=== PATIENT | female | born 1965 | race Caucasian/White ===

== ENCOUNTER 2016-12-08 12:46 | Emergency (ER) | payer OTHER ==
[2016-12-08] MEDS ORDERED: Sodium Chloride 0.9% 10 ML Syringe FLUSH PRN (12:59)
--- NOTE | 2016-12-08 13:04 | EDM.PDOC ---
ED HPI NEURO - General Chief Complaint: Neurological Problem Stated Complaint: NUMB ON HER RIGHT SIDE Time Seen by Provider: 12/08/16 13:02 Source: Reports: Patient, Family History Limitations: Reports: No limitations - History of Present Illness INITIAL COMMENTS - FREE TEXT/NARRATIVE: pt developed numbness in the rt side of her mouth and rt facial area. She also has numbness on the rt arm and rt leg. She feels like her rt leg is heavy. Timing/Duration: Reports: Other ( started at 12:04) Location (Neuro Complaint): Reports: face, upper extremity, right, lower extremity, right Associated symptoms: Reports: headaches - Related Data Allergies/ADRs: Allergies Allergy/AdvReac Type Severity Reaction Status Date / Time codeine Allergy Diarrhea Verified 12/08/16 12:49 Home Meds: Home Meds NK [No Known Home Meds] 12/08/16 [History] Past Medical History Cardiovascular History: Reports: High cholesterol Endocrine/Metabolic History: Reports: Diabetes, type II - Past Surgical History GI Surgical History: Reports: Cholecystectomy Social & Family History - Tobacco Use Smoking Status *Q: Heavy Tobacco Smoker Years of Tobacco use: 36 Packs/Tins Daily: 1 - Alcohol Use Days Per Week of Alcohol Use: 2 Number of Drinks Per Day: 4 Total Drinks Per Week: 8 - Recreational Drug Use Recreational Drug Use: No ED ROS GENERAL - Review of Systems Review Of Systems: See Below Constitutional: Reports: no symptoms HEENT: Reports: No symptoms Respiratory: Reports: no symptoms Cardiovascular: Reports: No symptoms Endocrine: Reports: no symptoms, high glucose GI/Abdominal: Reports: No symptoms : Reports: no symptoms Musculoskeletal: Reports: no symptoms Skin: Reports: no symptoms Neurological: Reports: headache, other (numness on rt facial and rt arm and rt leg. ) Psychiatric: Reports: Anxiety ED EXAM, NEURO - Physical Exam Exam: See Below Text/Narrative:: pt arrived with numbness in the rt facial area and rt arm and rt leg. She has a left sided headache. She had a similar episode on Nov 22 that only lasted briefly. She did have a high sugar in the past but she stopped her meds. Her bs is greater than 400. Exam Limited By: No limitations General Appearance: alert, mild distress, other (pt is having the numbness in the rt facial and rt arm and rt leg. She has a left sided headache. Pupils are equal and reactive. ) Ears: normal TMs Nose: normal inspection Throat/Mouth: Normal inspection Head Exam: atraumatic Neck: normal inspection Respiratory/Chest: no respiratory distress GI/Abdominal: soft, non tender Rectal (Female) Exam: Deferred Neurological: alert, oriented x 3, other (pt has facial numbness on the rt and numbness in the rt arm and the rt leg. She does not have subjective findings. ) Back Exam: CVA tenderness (L) Extremities: normal inspection Psychiatric: normal affect, anxious Course - Vital Signs Last Recorded V/S: Last Vital Signs Temp 37.2 C 12/08/16 12:49 Pulse 75 12/08/16 14:34 Resp 18 12/08/16 14:34 BP 146/71 H 12/08/16 14:34 Pulse Ox 94 L 12/08/16 14:34 - Orders/Labs/Meds Orders: Active Orders 24 hr Category Date Time Status EKG Documentation Completion [RC] ASDIRECTED Care 12/08/16 13:02 Active UA W/MICROSCOPIC [URIN] Urgent Lab 12/08/16 13:02 Uncollected Sodium Chloride 0.9% [Saline Flush] Med 12/08/16 12:59 Active 10 ml FLUSH ASDIRECTED PRN Saline Lock Insert [OM.PC] Routine Oth 12/08/16 12:59 Ordered EKG 12 Lead [EK] Routine Ther 12/08/16 13:02 Ordered Medication Orders Sodium Chloride (Saline Flush) 10 ml FLUSH ASDIRECTED PRN PRN Reason: Keep Vein Open Last Admin: 12/08/16 13:35 Dose: 10 ml Labs: Laboratory Tests 12/08/16 12/08/16 Range/Units 13:22 13:22 WBC 11.7 H (4.5-11.0) K/uL RBC 5.09 (3.30-5.50) M/uL Hgb 15.5 H (12.0-15.0) g/dL Hct 43.9 (36.0-48.0) % MCV 86 (80-98) fL MCH 31 (27-31) pg MCHC 35 (32-36) % Plt Count 225 (150-400) K/uL Neut % (Auto) 64 (36-66) % Lymph % (Auto) 26 (24-44) % [place] % (Auto) 6 (2-6) % Eos % (Auto) 2 (2-4) % Baso % (Auto) 2 H (0-1) % Sodium 131 L (140-148) mmol/L Potassium 4.1 (3.6-5.2) mmol/L Chloride 97 L (100-108) mmol/L Carbon Dioxide 23 (21-32) mmol/L Anion Gap 15.1 H (5.0-14.0) mmol/L BUN 12 (7-18) mg/dL Creatinine 0.7 (0.6-1.0) mg/dL Est Cr Clr Drug Dosing 80.42 mL/min Estimated GFR (MDRD) > 60 (>60) Glucose 425 H* (74-106) mg/dL Calcium 8.5 (8.5-10.1) mg/dL Total Bilirubin 0.3 (0.2-1.0) mg/dL AST 9 L (15-37) U/L ALT 29 (12-78) U/L Alkaline Phosphatase 54 (46-116) U/L Total Protein 7.3 (6.4-8.2) g/dL Albumin 3.6 (3.4-5.0) g/dL Globulin 3.7 H (2.3-3.5) g/dL Albumin/Globulin Ratio 1.0 L (1.2-2.2) Meds: Medications Generic Name Dose Route Start Last Admin Trade Name Freq PRN Reason Stop Dose Admin Sodium Chloride 10 ml 12/08/16 12:59 12/08/16 13:35 Saline Flush FLUSH 10 ml ASDIRECTED PRN Administration Keep Vein Open - Re-Assessments/Exams Free Text/Narrative Re-Assessment/Exam: 12/08/16 15:20 pt had a head scn which was neg. She had labs which revealed a bs of greater than 400. She remains alert and her bp is good. This case was discussed with Dr Brenner and he felt she needed to be put through the stroke protocol Her stroke scale is 0. Departure - Departure Time of Disposition: 15:22 Disposition: Home, Self-Care 01 Condition: fair Clinical Impression: Stroke-like symptoms, Hyperglycemia Forms: ED Department Discharge Care Plan Goals: pt will be transfered to [facility] for evaluation, --stroke protocol. She refused an ambulance transport and refused any insulin therapy. This was also discussed with Dr Pena in [facility] in [place]. - My Orders Last 24 Hours: My Active Orders 12/08/16 12:59 Sodium Chloride 0.9% [Saline Flush] 10 ml FLUSH ASDIRECTED PRN Saline Lock Insert [OM.PC] Routine 12/08/16 13:02 EKG Documentation Completion [RC] ASDIRECTED UA W/MICROSCOPIC [URIN] Urgent EKG 12 Lead [EK] Routine - Assessment/Plan Last 24 Hours: My Active Orders 12/08/16 12:59 Sodium Chloride 0.9% [Saline Flush] 10 ml FLUSH ASDIRECTED PRN Saline Lock Insert [OM.PC] Routine 12/08/16 13:02 EKG Documentation Completion [RC] ASDIRECTED UA W/MICROSCOPIC [URIN] Urgent EKG 12 Lead [EK] Routine
--- NOTE | 2016-12-08 14:07 | CT ---
Head wo Cont HISTORY: Headaches and numbness. COMPARISON: None TECHNIQUE: Noncontrast enhanced axial cuts were obtained of the brain. Total DLP: 701. FINDINGS:There is no cerebral or subdural hemorrhage. There is no mass effect or edema. The ventricl es and CSF spaces are appropriate for age. No space occupying lesions are demonstrated. The orbital structures are unremarkable. The sinuses demonstrate normal aeration. IMPRESSION: Negative exam.
[2016-12-08] MEDS ORDERED: Aspirin 325 MG Tab.EC PO ONE (15:18)
[2016-12-08 15:23] VITALS: BP 140/71
== END 2016-12-08 16:00 | disposition home or self-care (01) ==
LOC: JP.ED 12:46
DX: E11.65 Type 2 diabetes mellitus with hyperglycemia (principal); R20.0 Anesthesia of skin; Z88.5 Allergy status to narcotic agent; F17.210 Nicotine dependence, cigarettes, uncomplicated
CPT/HCPCS: 36415; 70450; 80053; 85025; 93005; 99285; A9270; J7050